=== PATIENT | female | born 1990 | race African-American/Black ===

== ENCOUNTER 2021-05-31 13:06 | Emergency (ER) | payer MEDICAID ==
[~2021-05-31] VITALS: Ht 170.2 cm; Wt 85.0 kg
[2021-05-31 13:29] VITALS: BP 139/91
[2021-05-31 15:31] LABS: CLARITY URINE CLOUDY (CLEAR); COLOR URINE YELLOW (YELLOW); KETONES URINE NEGATIVE (NEGATIVE); LEUKOCYTE ESTERASE URINE 1+ (NEGATIVE); NITRITE URINE NEGATIVE (NEGATIVE); OCCULT BLOOD URINE 2+ (NEGATIVE); PROTEIN URINE NEGATIVE (NEGATIVE); SPECIFIC GRAVITY URINE 1.009 (1.005-1.030); UROBILINOGEN URINE 0.2 E.U./dL (0.2-1.0)
[2021-05-31 16:34] LABS: BASOPHILS % 0.7 % (0.0-2.0); EOSINOPHILS % 0.6 % (0.0-5.0); HEMATOCRIT. 42.4 % (36.0-48.0); HEMOGLOBIN. 14.2 g/dL (12.0-16.0); LYMPHOCYTES % 28.9 % (20.0-50.0); MEAN CORPUSCULAR VOLUME 86.8 fL (81.0-99.0); MEAN PLATELET VOLUME 8.4 fl (7.4-10.4); MONOCYTES % 4.5 % (2.0-8.0); NEUTROPHILS % 65.3 % (40.0-76.0); PLATELET 267 x1000/uL (130-400); RED BLOOD CELL COUNT 4.89 mill/uL (4.2-5.4)
[2021-05-31 16:40] LABS: CHLORIDE 108 mEq/L (98-107)
[2021-05-31] MEDS ORDERED: NITR-87 MT (17:03)
[2021-05-31 17:05] LABS: B-HCG QUANTITATIVE 42067 mIU/mL (<3)
== END 2021-05-31 18:01 | disposition home or self-care (01) ==
LOC: ER 13:06
DX: O20.0 Threatened abortion (principal); Z3A.08 8 weeks gestation of pregnancy
CPT/HCPCS: 36415; 76801; 80053; 81003; 84702; 85025; 86850; 86900; 99284